=== PATIENT | female | born 1975 | race Caucasian/White ===

== ENCOUNTER 2022-02-25 09:49 | Emergency (ER) | payer BC | END 2022-02-25 11:45 | disposition home or self-care (01) | LOC: ER1 09:49 | DX: U07.1 COVID-19 (principal); Z23 Encounter for immunization; I10 Essential (primary) hypertension; J44.9 Chronic obstructive pulmonary disease, unspecified; F17.200 Nicotine dependence, unspecified, uncomplicated | CPT/HCPCS: 71046; 99283; M0222 ==